=== PATIENT | female | born 1940 | race Caucasian/White ===

== ENCOUNTER 2018-01-11 12:20 | Emergency (ER) | payer MEDICARE ==
[~2018-01-11] VITALS: Ht 154.9 cm; Wt 57.6 kg
[2018-01-11] MEDS ORDERED: FAMOTIDINE 20 MG/2 ML VIAL IV STA (13:27)
[2018-01-11 13:30] LABS: BASOPHILS % 0.2 % (0.0-1.0); HEMATOCRIT 36.9 % (34.2-44.1); HEMOGLOBIN 12.6 g/dL (12.0-16.0); LYMPHOCYTES # (AUTO) 1.8 (1.0-3.2); LYMPHOCYTES % 20.2 % (18.0-39.1); MEAN CORPUSCULAR HGB CONC 34.1 g/dL (31-35); MEAN CORPUSCULAR VOLUME 84.8 fL (81-99); MONOCYTES # (AUTO) 0.6 (0.2-0.8); MONOCYTES % 7.4 % (4.4-11.3); NEUTROPHILS # (AUTO) 6.2 (2.1-6.9); PLATELET COUNT 211 x10e3/uL (140-360); RED BLOOD COUNT 4.35 x10e6/uL (3.6-5.1); RED CELL DISTRIBUTION WIDTH 12.9 % (11.7-14.4)
[2018-01-11 13:38] LABS: CLARITY,URINE CLEAR (CLEAR); COLOR,URINE YELLOW (YELLOW)
[2018-01-11 13:39] LABS: BILIRUBIN,URINE NEGATIVE (NEGATIVE); KETONES,URINE NEGATIVE (NEGATIVE); LEUKOCYTE ESTERASE ,URINE TRACE (NEGATIVE); NITRITE,URINE NEGATIVE (NEGATIVE); PROTEIN,URINE DIPSTICK NEGATIVE (NEGATIVE); URINE UROBILINOGEN 0.2 mg/dL (0.2 - 1)
[2018-01-11 13:40] LABS: INR 1.11; PROTHROMBIN TIME 13.5 seconds (11.9-14.5)
[2018-01-11 13:41] LABS: PARTIAL THROMBOPLASTIN TIME 27.6 seconds (23.8-35.5)
[2018-01-11 13:46] LABS: AMYLASE 40 U/L (25-125); LIPASE 158 U/L (8-78)
[2018-01-11 13:48] LABS: ALANINE AMINOTRANSFERASE 17 IU/L (0-55); ALBUMIN 4.1 g/dL (3.5-5.0); ALBUMIN/GLOBULIN RATIO 1.2 (0.8-2.0); ALKALINE PHOSPHATASE 74 IU/L (40-150); ANION GAP 13.1 mmol/L (8-16); BLOOD UREA NITROGEN 12 mg/dL (7-26); BUN/CREATININE RATIO 14 (6-25); CARBON DIOXIDE 28 mmol/L (22-29); CHLORIDE 104 mmol/L (98-107); CREATINE KINASE 97 IU/L (29-168); CREATININE, SERUM 0.84 mg/dL (0.57-1.11); EST GLOMERULAR FILTRATION RATE > 60 ML/MIN (60-); GLUCOSE 112 mg/dL (74-118); POTASSIUM 4.1 mmol/L (3.5-5.1); SODIUM 141 mmol/L (136-145)
[2018-01-11 13:53] LABS: BACTERIA,URINE FEW /HPF; EPITHELIAL CELLS,URINE FEW /LPF; RBC,URINE 0-5 /HPF (0-5)
--- NOTE | 2018-01-11 15:38 | Diagnostic Imaging Report ---
PROCEDURE: A single AP view of the chest. COMPARISON: None. INDICATIONS: MID CHEST PAIN TODAY AFTER TOOTH REMOVAL FINDINGS: Lines/tubes: None. Lungs: Hyperinflated lungs, suggestive of emphysematous changes. No focal consolidation. Pleura: There is no pleural effusion or pneumothorax. Heart and mediastinum: Calcification of aortic arch. Cardiac silhouette is mildly prominent. Bones: No acute bony abnormality. IMPRESSION: Hyperinflated lungs, suggestive of emphysematous changes. No definite focal consolidation. Dictated by: Juancarlos Quijano M.D. on 01/11/2018 at 15:44 Electronically approved by: Juancarlos Quijano M.D. on 01/11/2018 at 15:44
[2018-01-11] MEDS ORDERED: FAMOTIDINE 20 MG/2 ML VIAL IV ONE (17:11)
== END 2018-01-11 17:17 | disposition home or self-care (01) ==
LOC: ER 12:20
DX: R10.13 Epigastric pain (principal); K21.9 Gastro-esophageal reflux disease without esophagitis; E78.5 Hyperlipidemia, unspecified
CPT/HCPCS: 36415; 71045; 80053; 81001; 82150; 82550; 82553; 83690; 84484; 85025; 85610; 85730; 93005; 99284